=== PATIENT | male | born 1930 | race Caucasian/White ===

== ENCOUNTER → 2017-11-10 | Outpatient (CLI) | payer OTHER | LOC: ULTRA 09:12 | DX: M79.604 Pain in right leg (principal); M25.561 Pain in right knee; M79.89 Other specified soft tissue disorders ==

== ENCOUNTER → 2019-01-26 | Outpatient (CLI) | payer OTHER | LOC: CAT 10:25 | DX: I25.10 Atherosclerotic heart disease of native coronary artery without angina pectoris (principal); J84.10 Pulmonary fibrosis, unspecified; J90 Pleural effusion, not elsewhere classified; I35.8 Other nonrheumatic aortic valve disorders; K44.9 Diaphragmatic hernia without obstruction or gangrene; J98.4 Other disorders of lung; Z95.1 Presence of aortocoronary bypass graft ==

== ENCOUNTER 2019-09-29 09:48 | Emergency (ER) | payer OTHER ==
[~2019-09-29] VITALS: Ht 172.7 cm; Wt 68.0 kg
[2019-09-29 10:10] LABS: ABSOLUTE NEUTROPHILS 3.7 thou/uL (1.4-8.2); BASOPHILS 0.6 % (0.0-2.0); EOSINOPHILS 4.6 % (0.0-3.0); HEMATOCRIT 32.4 % (42.0-52.0); HEMOGLOBIN 11.1 gm/dL (14.0-18.0); LYMPHOCYTES 17.8 % (24.0-44.0); MCH 31.1 pg (26.0-34.0); MCHC 34.1 g/dL (28.0-37.0); MCV 91.2 fL (80.0-100.0); MONOCYTES 7.3 % (1.0-8.0); PLATELET COUNT 219 thou/uL (150-400); POLYS 69.7 % (36.0-66.0); RBC 3.55 mil/uL (4.50-6.00); RDW 13.1 % (10.5-14.5); WBC 5.3 thou/uL (4.0-11.0)
[2019-09-29] MEDS ORDERED: PRADAXA75 MG PO (10:11)
[2019-09-29] MEDS ORDERED: NORVASC10 MG PO (10:11)
[2019-09-29] MEDS ORDERED: FLOMAX0.4 MG PO (10:11)
[2019-09-29] MEDS ORDERED: LISINOPRIL20 MG PO (10:12)
[2019-09-29] MEDS ORDERED: CLONAZEPAM 0.50.5 M1 PO (10:12)
[2019-09-29 10:14] LABS: ANION GAP 8 mmol/L (7-16); BUN 19 mg/dL (7-18); CALCIUM 9.2 mg/dL (8.5-10.1); CHLORIDE 100 mmol/L (98-107); CO2 23 mmol/L (21-32); CREATININE 1.3 mg/dL (0.7-1.3); GLUCOSE 98 mg/dL (74-106); POTASSIUM 4.8 mmol/L (3.5-5.1); SODIUM 131 mmol/L (136-145)
[2019-09-29 10:17] LABS: APTT 47.4 Seconds (24.5-32.8); INR 1.3; PROTIME 13.8 Seconds (9.3-11.4)
[2019-09-29 10:24] LABS: ALBUMIN 3.6 g/dL (3.4-5.0); SGOT 20 U/L (15-37); SGPT 18 U/L (30-65); TOTAL BILIRUBIN 0.4 mg/dL (<0.1-1.0); TOTAL PROTEIN 6.6 g/dL (6.4-8.2); TROPONIN-I <0.06 ng/mL (<0.06)
[2019-09-29] MEDS ORDERED: VALIUM2 MG PO (11:10)
[2019-09-29] MEDS ORDERED: ANTIVERT25 MG PO (11:10)
[2019-09-29 11:44] VITALS: BP 144/38
--- NOTE | 2019-09-29 12:26 | EKG ---
[facility] [employer] 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 : [id number] Requested By: Javier Storm Order Number: [id number] MD: Martell Tom Measurements Intervals [place] Rate: 79 P: RI: QRS: -26 QRSD: 101 T: 72 QT: 393 QTc: 451 Interpretive Statements Atrial fibrillation Ventricular bigeminy Borderline left axis deviation Low voltage, precordial leads Abnormal R-wave progression, early transition Nonspecific ST segment abnormalities Compared to ECG 10/30/2004 13:20:40 Ventricular premature complex(es) now present Low QRS voltage now present Short QT interval now present Sinus bradycardia no longer present Electronically Signed On 09-29-2019 12:26:08 [employer] TECHNICIAN by Martell Tom [email or web address] <ELECTRONICALLY SIGNED> By: Martell oTm MD 09/29/19 1226 [id number] Martell Tom MD /EPI
== END 2019-09-29 11:48 | disposition home or self-care (01) ==
LOC: ER 09:48
PROVIDERS: Emergency Medicine
DX: H81.10 Benign paroxysmal vertigo, unspecified ear (principal); I48.20 Chronic atrial fibrillation, unspecified; I49.3 Ventricular premature depolarization; I25.10 Atherosclerotic heart disease of native coronary artery without angina pectoris; K21.9 Gastro-esophageal reflux disease without esophagitis; Z87.442 Personal history of urinary calculi; Z87.891 Personal history of nicotine dependence; Z88.0 Allergy status to penicillin